=== PATIENT | male | born 1965 ===

== ENCOUNTER 2021-09-17 18:06 | Emergency (ER) | payer OTHER ==
[~2021-09-17] VITALS: Ht 185.4 cm; Wt 93.0 kg
[2021-09-17] MEDS ORDERED: CLONAZEPAM1 MG PO (18:37)
[2021-09-17] MEDS ORDERED: LEVODOPA25 GM (18:38)
[2021-09-17] MEDS ORDERED: AMOX1TAB5 PO (23:14)
[2021-09-17] MEDS ORDERED: MEDROLPACK PO (23:22)
== END 2021-09-17 23:32 | disposition home or self-care (01) ==
LOC: ER 18:06
DX: J02.9 Acute pharyngitis, unspecified (principal); J06.9 Acute upper respiratory infection, unspecified; Z20.822 Contact with and (suspected) exposure to COVID-19; Z87.891 Personal history of nicotine dependence